=== PATIENT | male | born 1970 | race Caucasian/White ===

== ENCOUNTER 2016-12-14 15:12 | Emergency (ER) | payer SELFPAY ==
[~2016-12-14] VITALS: Ht 172.7 cm; Wt 64.4 kg
[2016-12-14 15:15] VITALS: BP 130/90
== END 2016-12-14 16:08 | disposition home or self-care (01) ==
LOC: ED 16:00
DX: S62.661A Nondisplaced fracture of distal phalanx of left index finger, initial encounter for closed fracture (principal); W23.0XXA Caught, crushed, jammed, or pinched between moving objects, initial encounter; Y93.89 Activity, other specified; Y92.89 Other specified places as the place of occurrence of the external cause; Y99.8 Other external cause status
CPT/HCPCS: 29130